=== PATIENT | female | born 1995 | race American Indian/Alaskan Native ===

== ENCOUNTER 2019-05-20 10:59 | Emergency (ER) | payer SELFPAY ==
[2019-05-20 11:12] VITALS: BP 113/71
--- NOTE | 2019-05-20 11:58 | XRay Report ---
LEFT FOOT 3 VIEWS INDICATION / CLINICAL INFORMATION: Left foot pain with puncture from ashtray. COMPARISON: None available. FINDINGS: BONES / JOINT(S): No acute fracture or subluxation. No significant arthritis. There is a 2.5 cm well- circumscribed, ovoid lucent lesion in the calcaneal tuberosity with a thick sclerotic margin. SOFT TISSUES: I do not identify a radiopaque foreign body ADDITIONAL FINDINGS: None. IMPRESSION: 1. No evidence of fracture or radiopaque foreign body. 2. Incidental 2.5 cm benign-appearing fibro-osseous lesion in the calcaneal tuberosity. Signer Name: Huy Herrera MD Signed: 05/20/2019 11:53 AM Workstation Name: [id number]
[2019-05-20] MEDS ORDERED: SODIUM CHLORIDE 0.9% 1000 ML 1,000 ML ONE (12:01)
[2019-05-20] MEDS ORDERED: TETANUS,DIPH,PERTUSS(ACELL) VACCINE 0.5 ML SYRINGE IM ONE (12:13)
[2019-05-20] MEDS ORDERED: BACITRACIN ZINC OINT 28.4 GM TP ONE (12:14)
--- NOTE | 2019-05-20 12:24 | Emergency Department Report ---
ED Extremity Problem HPI - General Chief complaint: Extremity Problem,Nontraumatic Stated complaint: LT FOOT INJURY Time Seen by Provider: 05/20/19 11:52 Source: patient Mode of arrival: Ambulatory Limitations: No Limitations - History of Present Illness Initial comments: 23 year-old female with no past medical or surgical history presents to the hospital complaints pain to left heel since stepping on a sharp object this morning. Patient was barefoot when incident occurred. Pain currently is 5/10 in intensity, constant, worse or palpation and pressure with ambulation. She stepped on a dragon shaped ashtray causing it to break and puncture her left heel. She is unsure at this any retained foreign body. Last tetanus unknown. Severity scale (0 -10): 5 - Related Data Previous Rx's Medication Instructions Recorded Last Taken Type Bacitracin Zinc Oint [Antibiotic 1 applicatio TP BID #1 tube 05/20/19 Unknown Rx Oint] Ibuprofen [Motrin] 600 mg PO Q8H PRN #30 tablet 05/20/19 Unknown Rx cephALEXin [Keflex] 500 mg PO Q6HR 7 Days capsule 05/20/19 Unknown Rx Allergies Allergy/AdvReac Type Severity Reaction Status Date / Time pollen extracts Allergy Rash Verified 05/20/19 11:12 ED Review of Systems ROS: Stated complaint: LT FOOT INJURY Other details as noted in HPI Comment: All other systems reviewed and negative ED Past Medical Hx - Past Medical History Previous Medical History?: No - Surgical History Past Surgical History?: No - Social History Smoking Status: Current Every Day Smoker Substance Use Type: Alcohol - Medications Home Medications: Home Medications Medication Instructions Recorded Confirmed Last Taken Type Bacitracin Zinc Oint [Antibiotic 1 applicatio TP BID #1 tube 05/20/19 Unknown Rx Oint] Ibuprofen [Motrin] 600 mg PO Q8H PRN #30 tablet 05/20/19 Unknown Rx cephALEXin [Keflex] 500 mg PO Q6HR 7 Days capsule 05/20/19 Unknown Rx ED Physical Exam - General Limitations: No Limitations - Other Other exam information: Gen.: No acute distress Head: Atraumatic Eyes: Normal appearance ENT: Moist mucous membranes Neck: Normal appearance, no posterior midline tenderness, no meningismus Chest: Clear to auscultation bilaterally Cardiovascular: Regular rate and rhythm Abdomen: Normal appearance, soft, nontender, no rebound or guarding, normal bowel sounds Back: Normal appearance, nontender Extremity: Full range of motion, normal appearance Neuro: Alert 0 x 3, clear speech, no focal motor or sensory deficit Psychiatric: Appropriate Skin: 1 cm superficial laceration/skin puncture to left heel, no active bleeding. ED Course Vital Signs 05/20/19 11:10 Temperature 97.9 F Pulse Rate 72 Respiratory 18 Rate Blood Pressure 113/71 [Right] O2 Sat by Pulse 97 Oximetry ED Medical Decision Making - Radiology Data Radiology results: report reviewed LEFT FOOT 3 VIEWS INDICATION / CLINICAL INFORMATION: Left foot pain with puncture from ashtray. COMPARISON: None available. FINDINGS: BONES / JOINT(S): No acute fracture or subluxation. No significant arthritis. There is a 2.5 cm well-circumscribed, ovoid lucent lesion in the calcaneal tuberosity with a thick sclerotic margin. SOFT TISSUES: I do not identify a radiopaque foreign body ADDITIONAL FINDINGS: None. IMPRESSION: 1. No evidence of fracture or radiopaque foreign body. 2. Incidental 2.5 cm benign-appearing fibro-osseous lesion in the calcaneal tuberosity. - Medical Decision Making pt with laceration secondary to puncture wound. no FB on xray. low suspicion for retained FB. Offer for anesthesia and wound exploration declined. wound irrigated, bacitracin and dressing applied. Tetanus and motrin provide. empiric abx will be prescribed. - Differential Diagnosis laceration, puncture wound, retained foreign body Critical Care Time: No Critical care attestation.: If time is entered above; I have spent that time in minutes in the direct care of this critically ill patient, excluding procedure time. ED Disposition Clinical Impression: Puncture wound of foot Disposition: [id number] TO HOME OR SELFCARE Is pt being admited?: No Does the pt Need Aspirin: No Condition: Stable Instructions: Puncture Wound (ED), Diphtheria/Acellular Pertussis/Tetanus Vaccine (DTaP) (Injection) Additional Instructions: Take the medication as prescribed. Follow-up with your doctor or with the doctor/clinic provided. Return if symptoms worsen as indicated by your discharge instructions. Prescriptions: Bacitracin Zinc Oint [Antibiotic Oint] 1 applicatio TP BID #1 tube cephALEXin [Keflex] 500 mg PO Q6HR 7 Days capsule Ibuprofen [Motrin] 600 mg PO Q8H PRN #30 tablet PRN Reason: Pain Referrals: [facility] [Provider Group] - 3-5 Days GEE MILLER MD [Staff Physician] - 3-5 Days Time of Disposition: 12:42
[2019-05-20] MEDS ORDERED: IBUPROFEN 600 MG TAB PO ONE (12:27)
[2019-05-20] MEDS ORDERED: NEOMY 3.5 MG/BACIT 400 UNITS/POLY B 5000 UNITS/GM OINT PACKET TP ONE (12:27)
== END 2019-05-20 13:07 | disposition home or self-care (01) ==
LOC: ED 10:59
DX: S91.332A Puncture wound without foreign body, left foot, initial encounter (principal); F17.200 Nicotine dependence, unspecified, uncomplicated; Z91.048 Other nonmedicinal substance allergy status; W22.8XXA Striking against or struck by other objects, initial encounter; Y93.89 Activity, other specified; Y92.89 Other specified places as the place of occurrence of the external cause; Y99.8 Other external cause status
CPT/HCPCS: 90471; 90715; A6250; J7030